=== PATIENT | male | born 1945 | race Two or more races ===

== ENCOUNTER 2020-02-07 14:23 | Outpatient (CLI) | payer OTHER | END 2020-02-07 14:31 | disposition home or self-care (01) | LOC: MRI 14:23 → RAD 14:23 | PROVIDERS: ATTEND Orthopaedic Surgery | DX: M71.22 Synovial cyst of popliteal space [Baker], left knee (principal); M25.562 Pain in left knee; M25.561 Pain in right knee | CPT/HCPCS: 73721 ==

== ENCOUNTER 2024-11-30 09:59 | Outpatient (CLI) | payer OTHER | END 2024-11-30 10:01 | disposition home or self-care (01) | LOC: SONOGRAMA 09:59 | PROVIDERS: ATTEND General Practice | DX: N15.9 Renal tubulo-interstitial disease, unspecified (principal); I12.9 Hypertensive chronic kidney disease with stage 1 through stage 4 chronic kidney disease, or unspecified chronic kidney disease ==